=== PATIENT | male | born 1940 | race Caucasian/White ===

== ENCOUNTER 2023-03-19 10:02 | Outpatient (CLI) | payer MEDICARE, OTHER, SELFPAY ==
--- NOTE | ~2023-03-19 | XR_ITS ---
EXAMINATION: XR cervical spine 4-5V DATE: 03/19/2023 10:36 INDICATION: Neck pain. TECHNIQUE: 5 views of cervical spine including flexion and extension views were obtained. COMPARISON: None. FINDINGS: There is kyphosis of lower cervical spine. There is 7 degrees levocurvature of cervical spi ne. The spine is hypomobile with extension. Vertebral body heights are normal. There is moderately de creased disc height at C6-C7. 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 There is mild central canal stenosis at C6-C7. No prevertebral soft tissue swelling. IMPRESSION: 1. Moderate cervical spondylosis. Reviewed, dictated and finalized at location E. [employer]
== END 2023-03-19 10:03 | disposition home or self-care (01) ==
PROVIDERS: PCP Family Medicine; Visit Provider Physician Assistant
DX: M47.892 Other spondylosis, cervical region (principal)
CPT/HCPCS: 72050